=== PATIENT | female | born 1995 | race Caucasian/White ===

== ENCOUNTER 2016-09-12 05:35 | Day surgery (SDC) | payer MEDICAID ==
[2016-09-12] VITALS (9 sets, daily range): BP systolic 105–132; BP diastolic 58–80; PULSE 70–82; TEMP 97.5–98
[~2016-09-12] VITALS: Ht 165.1 cm; Wt 110.4 kg
[2016-09-12] MEDS ORDERED: PRENATAL1 TA7 PO (07:10)
[2016-09-12] MEDS ORDERED: PERCOCET 325 MG1 TA2 PO (09:11)
[2016-09-12] MEDS ORDERED: COLACE 100100 MG/CAP PO (09:11)
== END 2016-09-12 15:30 | disposition home or self-care (01) ==
LOC: SDCO 05:35
DX: O99.612 Diseases of the digestive system complicating pregnancy, second trimester (principal); K80.10 Calculus of gallbladder with chronic cholecystitis without obstruction; Z3A.25 25 weeks gestation of pregnancy
CPT/HCPCS: J0330; J0694; J2270; J2405; J2550; J2704; J2710; J3010; J7120